=== PATIENT | female | born 1975 | race African-American/Black ===

== ENCOUNTER 2017-06-18 19:30 | Emergency (ER) | payer MEDICAID ==
[~2017-06-18] VITALS: Ht 172.7 cm; Wt 153.2 kg
[~2017-06-18 19:30] MED LIST: NO HOME MEDS
[2017-06-18 19:42] VITALS: TEMP 97.6
[2017-06-18] MEDS ORDERED: ELIMITE TOP (20:19)
[2017-06-18 20:50] VITALS: BP 155/76; PULSE 72
== END 2017-06-18 20:50 | disposition home or self-care (01) ==
LOC: COL.ER 19:30
DX: R21 Rash and other nonspecific skin eruption (principal)

== ENCOUNTER → 2017-06-25 | Outpatient (CLI) | payer MEDICAID ==
[~2017-06-25] MED LIST changes: +ELIMITE TOP
== END ==
LOC: COL.RAD 11:21
DX: M75.32 Calcific tendinitis of left shoulder (principal); M24.012 Loose body in left shoulder

== ENCOUNTER → 2017-07-12 | Outpatient (CLI) | payer MEDICAID ==
[~2017-07-12] VITALS: Ht 172.7 cm; Wt 154.2 kg
[~2017-07-12] MED LIST changes: +D3-5050000 IU PO; +MULTIPLE VITAMI1 TA1 PO; +VITAMIN B122500 MCG PO
[2017-07-12 14:53] VITALS: BP 164/84; PULSE 68
== END ==
LOC: LIGHT 09:31
DX: E66.01 Morbid (severe) obesity due to excess calories (principal); Z68.43 Body mass index [BMI] 50.0-59.9, adult; Z71.3 Dietary counseling and surveillance
CPT/HCPCS: G0463

== ENCOUNTER → 2017-07-21 | Outpatient (CLI) | payer MEDICAID | LOC: COL.RAD 10:30 | DX: M75.82 Other shoulder lesions, left shoulder (principal); M75.52 Bursitis of left shoulder; M19.012 Primary osteoarthritis, left shoulder ==

== ENCOUNTER → 2017-08-12 | Outpatient (CLI) | payer MEDICAID | LOC: COL.RAD 09:55 | DX: K95.09 Other complications of gastric band procedure (principal) ==

== ENCOUNTER → 2017-08-23 | Outpatient (CLI) | payer MEDICAID ==
[~2017-08-23] VITALS: Ht 172.7 cm; Wt 154.7 kg
[2017-08-23 13:43] VITALS: BP 160/70; PULSE 80
== END ==
LOC: LIGHT 13:29
DX: E66.01 Morbid (severe) obesity due to excess calories (principal); Z68.43 Body mass index [BMI] 50.0-59.9, adult; Z71.3 Dietary counseling and surveillance
CPT/HCPCS: G0463

== ENCOUNTER 2017-09-16 11:53 | Inpatient (IN) | payer MEDICAID ==
[~2017-09-16] VITALS: Ht 170.2 cm; Wt 151.5 kg
[2017-10-20] VITALS (11 sets, daily range): BP systolic 146–165; BP diastolic 61–81; PULSE 57–692; TEMP 97–97.8
[2017-10-20] MEDS ORDERED: FLEXERIL5 MG PO (08:32)
[2017-10-20] MEDS ORDERED: ZOVIRAX 200MG200 MG PO (08:33)
[2017-10-21 01:22] VITALS: BP 158/87; PULSE 62; TEMP 98.4
[2017-10-21 05:31] VITALS: BP 149/78; PULSE 65; TEMP 98.5
[2017-10-21 09:52] VITALS: BP 147/71; PULSE 57; TEMP 98.8
[2017-10-21 13:09] VITALS: BP 160/84; PULSE 58; TEMP 98.6
== END 2017-10-21 14:22 | disposition home or self-care (01) | DRG 327 ==
LOC: INPTSU 10-20 07:19 → SURG 10-20 09:00
PROVIDERS: Surgery
PROC: 0DP64YZ Removal of Other Device from Stomach, Percutaneous Endoscopic Approach (ICD-10-PCS; 2017-10-20)
PROC: 0DB64Z3 Excision of Stomach, Percutaneous Endoscopic Approach, Vertical (ICD-10-PCS; principal; 2017-10-20 09:00)
DX: K95.09 Other complications of gastric band procedure (principal); Z68.43 Body mass index [BMI] 50.0-59.9, adult; E66.01 Morbid (severe) obesity due to excess calories; Z98.84 Bariatric surgery status
CPT/HCPCS: A9284; C9113; J0171; J0330; J1885; J2405; J2550; J2704; J3010; J7120

== ENCOUNTER → 2017-09-28 | Outpatient (CLI) | payer MEDICAID | LOC: LIGHT 10:25 | DX: E66.01 Morbid (severe) obesity due to excess calories (principal); K95.09 Other complications of gastric band procedure; Z98.84 Bariatric surgery status; Z68.43 Body mass index [BMI] 50.0-59.9, adult; Z71.3 Dietary counseling and surveillance ==

== ENCOUNTER 2017-10-04 09:05 | Outpatient (RCR) | payer MEDICAID ==
[2017-10-20] MEDS ORDERED: FLEXERIL5 MG PO (08:32)
[2017-10-20] MEDS ORDERED: ZOVIRAX 200MG200 MG PO (08:33)
[2017-10-31] MEDS ORDERED: NORCO 325 MG-7.1 TAB PO (18:42)
[2017-10-31] MEDS ORDERED: CALCIUM CARBON500 M1 PO (18:43)
[2017-10-31] MEDS ORDERED: FLINTSTONES W/I1 CTB PO (18:43)
[2017-11-04] MEDS ORDERED: LOVENOX150 MG/ML SQ (10:15)
[2017-11-04] MEDS ORDERED: COUMADIN 5MG5 MG/TAB PO (10:15)
[2017-11-04] MEDS ORDERED: JANTOVEN2 MG PO (10:18)
[2017-11-04] MEDS ORDERED: NORCO 325 MG-51 TAB PO (10:25)
[2017-11-04] MEDS ORDERED: KLONOPIN 0.5MG0.5 MG PO (10:25)
[2017-11-04] MEDS ORDERED: MELAT3MGTAB PO (11:24)
[2017-11-04] MEDS ORDERED: COLACE 100100 MG/CAP PO (11:25)
[2017-11-04] MEDS ORDERED: MIRALAX PA17 GM/Dose PO (11:25)
[2017-11-10] MEDS ORDERED: LOVENOX150 MG/ML SQ (15:30)
[2017-11-10] MEDS ORDERED: CEPHALEXIN500 M1 PO (19:27)
[2017-11-15] MEDS ORDERED: B-121000 MCG (13:38)
[2017-11-15] MEDS ORDERED: D3-5050000 IU PO (13:38)
[2017-12-17] MEDS ORDERED: FLEXERIL5 MG PO (14:08)
[2017-12-17] MEDS ORDERED: ROBAXIN 75750 MG/TAB PO (14:40)
[2017-12-17] MEDS ORDERED: NORCO 325 MG-51 TAB PO (14:41)
== END 2018-01-02 | disposition home or self-care (01) ==
LOC: WSPT
DX: M75.42 Impingement syndrome of left shoulder (principal)

== ENCOUNTER → 2017-10-04 | Outpatient (CLI) | payer MEDICAID ==
[~2017-10-04] VITALS: Ht 172.7 cm; Wt 156.0 kg
[2017-10-04 15:20] VITALS: BP 150/82; PULSE 60
== END ==
LOC: LIGHT 09:15
DX: Z01.818 Encounter for other preprocedural examination (principal)

== ENCOUNTER → 2017-10-26 | Outpatient (CLI) | payer MEDICAID ==
[~2017-10-26] MED LIST changes: +FLEXERIL5 MG PO; +ZOVIRAX 200MG200 MG PO
== END ==
LOC: COL.VAS 10:08
DX: M79.661 Pain in right lower leg (principal)

== ENCOUNTER 2017-10-31 18:02 | Inpatient (IN) | payer MEDICAID ==
[~2017-10-31] VITALS: Ht 170.2 cm; Wt 149.4 kg
[2017-10-31] MEDS ORDERED: NORCO 325 MG-7.1 TAB PO (18:42)
[2017-10-31] MEDS ORDERED: CALCIUM CARBON500 M1 PO (18:43)
[2017-10-31] MEDS ORDERED: FLINTSTONES W/I1 CTB PO (18:43)
[2017-10-31 18:44] LABS: BASO % 0.3 % (0.0-2.0); EOS # 0.1 (0.0-0.7); EOS % 1.2 % (0-4.0); GRAN % 73.3 % (42.2-75.2); LYMPH # 1.8 (1.2-3.4); LYMPH % 16.2 % (20.0-51.0); MEAN CELL VOLUME 69 fl (80.0-100.0); MEAN CORPUSCULAR HGB CONC 31 g/dl (33.0-37.0); MEAN PLATELET VOLUME 9.9 fl (7.4-10.4); MONO % 8.7 % (1.7-9.3); PLATELET COUNT 224 K/mm3 (130-400); RED BLOOD COUNT 4.83 M/mm3 (4.10-5.30); REDCELL DISTRIBUTION WIDTH-CV 17.2 % (11.5-14.5)
[2017-10-31 18:45] LABS: HEMATOCRIT 33.1 % (37.0-47.0); HEMOGLOBIN 10.1 g/dl (12.5-16.0); MEAN CORPUSCULAR HEMOGLOBIN 21 pg (27.0-31.0)
[2017-10-31 18:53] LABS: BILIRUBIN,TOTAL 0.3 mg/dL (0.0-1.0); CALCIUM 9.3 mg/dL (8.4-10.2); CREATININE, serum 0.56 mg/dL (0.52-1.25); POTASSIUM 3.8 mmol/L (3.4-5.0); TOTAL PROTEIN 8.8 gm/dL (6.4-8.2)
[2017-10-31 21:21] VITALS: BP 135/81; PULSE 82; TEMP 99.2
[2017-11-01 00:45] VITALS: BP 123/55; PULSE 67; TEMP 98.6
[2017-11-01 03:42] VITALS: BP 126/67; PULSE 68; TEMP 98.7
[2017-11-01 06:32] LABS: BASO % 0.3 % (0.0-2.0); EOS # 0.2 (0.0-0.7); EOS % 2.6 % (0-4.0); GRAN # 5.9 (1.4-6.5); GRAN % 76.7 % (42.2-75.2); LYMPH # 0.8 (1.2-3.4); MEAN CELL VOLUME 70 fl (80.0-100.0); MEAN CORPUSCULAR HGB CONC 31 g/dl (33.0-37.0); MEAN PLATELET VOLUME 9.9 fl (7.4-10.4); MONO # 0.8 (0.1-0.6); MONO % 10.1 % (1.7-9.3); PLATELET COUNT 202 K/mm3 (130-400); RED BLOOD COUNT 4.16 M/mm3 (4.10-5.30); REDCELL DISTRIBUTION WIDTH-CV 17.2 % (11.5-14.5)
[2017-11-01 06:33] LABS: MEAN CORPUSCULAR HEMOGLOBIN 22 pg (27.0-31.0)
[2017-11-01 06:38] LABS: CALCIUM 8.7 mg/dL (8.4-10.2); CREATININE, serum 0.54 mg/dL (0.52-1.25)
[2017-11-01 09:05] VITALS: BP 124/70; PULSE 65; TEMP 98.3
[2017-11-01 12:26] VITALS: BP 111/57; PULSE 83; TEMP 97.8
[2017-11-01 17:04] VITALS: BP 112/57; BP 126/67; PULSE 69; PULSE 82; TEMP 98; TEMP 98.4
[2017-11-01 19:27] VITALS: BP 133/81; PULSE 77; TEMP 99.8
[2017-11-02] VITALS (7 sets, daily range): BP systolic 119–145; BP diastolic 61–81; PULSE 74–94; TEMP 98.3–99
[2017-11-02 06:18] LABS: BASO % 0.2 % (0.0-2.0); EOS # 0.3 (0.0-0.7); EOS % 3.3 % (0-4.0); GRAN # 6.7 (1.4-6.5); GRAN % 70.6 % (42.2-75.2); LYMPH # 1.3 (1.2-3.4); MEAN CELL VOLUME 70 fl (80.0-100.0); MEAN CORPUSCULAR HGB CONC 31 g/dl (33.0-37.0); MEAN PLATELET VOLUME 10.7 fl (7.4-10.4); MONO # 1.1 (0.1-0.6); MONO % 11.6 % (1.7-9.3); PLATELET COUNT 220 K/mm3 (130-400); RED BLOOD COUNT 4.01 M/mm3 (4.10-5.30); REDCELL DISTRIBUTION WIDTH-CV 17.3 % (11.5-14.5)
[2017-11-02 06:24] LABS: HEMATOCRIT 27.9 % (37.0-47.0); HEMOGLOBIN 8.5 g/dl (12.5-16.0); MEAN CORPUSCULAR HEMOGLOBIN 21 pg (27.0-31.0)
[2017-11-02 06:30] LABS: CALCIUM 8.7 mg/dL (8.4-10.2); CREATININE, serum 0.51 mg/dL (0.52-1.25); POTASSIUM 4.1 mmol/L (3.4-5.0)
[2017-11-02 06:46] LABS: INR 1.5 (0.8-3.0); PROTHROMBIN TIME 17.1 SECONDS (9.7-12.8)
[2017-11-03 05:08] VITALS: BP 130/79; PULSE 94; TEMP 98.5
[2017-11-03 06:18] LABS: FACTOR II ACTIVITY 99 % (72-140); FACTOR V 74 % (50-150)
[2017-11-03 06:48] LABS: BASO % 0.2 % (0.0-2.0); EOS # 0.2 (0.0-0.7); EOS % 2.1 % (0-4.0); GRAN # 7.5 (1.4-6.5); GRAN % 73.6 % (42.2-75.2); LYMPH # 1.3 (1.2-3.4); LYMPH % 12.8 % (20.0-51.0); MEAN CELL VOLUME 70 fl (80.0-100.0); MEAN CORPUSCULAR HGB CONC 31 g/dl (33.0-37.0); MEAN PLATELET VOLUME 10.5 fl (7.4-10.4); MONO # 1.1 (0.1-0.6); MONO % 10.9 % (1.7-9.3); PLATELET COUNT 250 K/mm3 (130-400); RED BLOOD COUNT 3.94 M/mm3 (4.10-5.30); REDCELL DISTRIBUTION WIDTH-CV 17.1 % (11.5-14.5)
[2017-11-03 06:50] LABS: HEMOGLOBIN 8.4 g/dl (12.5-16.0); MEAN CORPUSCULAR HEMOGLOBIN 21 pg (27.0-31.0)
[2017-11-03 06:51] LABS: HEMATOCRIT 27.4 % (37.0-47.0)
[2017-11-03 07:07] LABS: CREATININE, serum 0.58 mg/dL (0.52-1.25); INR 1.7 (0.8-3.0); PROTHROMBIN TIME 19.7 SECONDS (9.7-12.8)
[2017-11-03 08:37] VITALS: BP 138/86; PULSE 85; TEMP 98.7
[2017-11-03 11:51] VITALS: BP 124/71; PULSE 80; TEMP 98.1
[2017-11-03 12:38] LABS: LUPUS ANTICOAGULANT INR 1.4 (()); LUPUS ANTICOAGULANT PT 15.6 sec (())
[2017-11-03 15:55] VITALS: BP 102/73; PULSE 73; TEMP 98.3
[2017-11-03 20:16] VITALS: BP 130/61; PULSE 63; TEMP 97.6
[2017-11-03 23:39] VITALS: BP 126/66; PULSE 60; TEMP 97.9
[2017-11-04 03:13] VITALS: BP 131/55; PULSE 88; TEMP 98.1
[2017-11-04 06:41] LABS: BASO % 0.4 % (0.0-2.0); EOS # 0.4 (0.0-0.7); EOS % 5.7 % (0-4.0); GRAN # 4.3 (1.4-6.5); GRAN % 62.9 % (42.2-75.2); LYMPH # 1.4 (1.2-3.4); LYMPH % 20.2 % (20.0-51.0); MEAN CELL VOLUME 68 fl (80.0-100.0); MEAN CORPUSCULAR HGB CONC 31 g/dl (33.0-37.0); MEAN PLATELET VOLUME 9.7 fl (7.4-10.4); MONO # 0.7 (0.1-0.6); MONO % 10.5 % (1.7-9.3); PLATELET COUNT 275 K/mm3 (130-400); RED BLOOD COUNT 3.91 M/mm3 (4.10-5.30); REDCELL DISTRIBUTION WIDTH-CV 17.3 % (11.5-14.5)
[2017-11-04 06:48] LABS: CREATININE, serum 0.57 mg/dL (0.52-1.25)
[2017-11-04 06:49] LABS: HEMATOCRIT 26.6 % (37.0-47.0); HEMOGLOBIN 8.3 g/dl (12.5-16.0); MEAN CORPUSCULAR HEMOGLOBIN 21 pg (27.0-31.0)
[2017-11-04 06:50] LABS: INR 1.7 (0.8-3.0); PROTHROMBIN TIME 20.2 SECONDS (9.7-12.8)
[2017-11-04 07:33] VITALS: BP 115/52; PULSE 66; TEMP 99
[2017-11-04] MEDS ORDERED: COUMADIN 5MG5 MG/TAB PO (10:15)
[2017-11-04] MEDS ORDERED: LOVENOX150 MG/ML SQ (10:15)
[2017-11-04] MEDS ORDERED: JANTOVEN2 MG PO (10:18)
[2017-11-04] MEDS ORDERED: KLONOPIN 0.5MG0.5 MG PO (10:25)
[2017-11-04] MEDS ORDERED: NORCO 325 MG-51 TAB PO (10:25)
[2017-11-04] MEDS ORDERED: MELAT3MGTAB PO (11:24)
[2017-11-04] MEDS ORDERED: MIRALAX PA17 GM/Dose PO (11:25)
[2017-11-04] MEDS ORDERED: COLACE 100100 MG/CAP PO (11:25)
[2017-11-05 08:48] LABS: PROTEIN C ACTIVITY 78 % (70-150)
[2017-11-05 08:49] LABS: ANTI-THROMBIN III 93 % (72-128)
== END 2017-11-04 14:10 | disposition home or self-care (01) | DRG 176 ==
LOC: COL.ER 18:02 → MEDICAL 20:19
PROVIDERS: Emergency Medicine; Nurse Practitioner; Physician Assistant
DX: I26.99 Other pulmonary embolism without acute cor pulmonale (principal); I82.4Z1 Acute embolism and thrombosis of unspecified deep veins of right distal lower extremity; Z68.43 Body mass index [BMI] 50.0-59.9, adult; E66.9 Obesity, unspecified; Z98.84 Bariatric surgery status; Z87.891 Personal history of nicotine dependence; F41.8 Other specified anxiety disorders
CPT/HCPCS: 99222-AI; 99231-AI; 99232-AI; 99239; A9284; J1170; J1650; J1885; J2405; J7030; Q9967

== ENCOUNTER → 2017-11-08 | Outpatient (CLI) | payer MEDICAID ==
[~2017-11-08] MED LIST changes: +CALCIUM CARBON500 M1 PO; +COLACE 100100 MG/CAP PO; +COUMADIN 5MG5 MG/TAB PO; +FLINTSTONES W/I1 CTB PO; +JANTOVEN2 MG PO; +KLONOPIN 0.5MG0.5 MG PO; +LOVENOX150 MG/ML SQ; +MELAT3MGTAB PO; +MIRALAX PA17 GM/Dose PO; +NORCO 325 MG-51 TAB PO; +NORCO 325 MG-7.1 TAB PO
[2017-11-08 09:33] LABS: HEMOGLOBIN 9.4 g/dl (12.5-16.0); MEAN CELL VOLUME 69 fl (80.0-100.0); MEAN CORPUSCULAR HEMOGLOBIN 21 pg (27.0-31.0); MEAN CORPUSCULAR HGB CONC 30 g/dl (33.0-37.0); MEAN PLATELET VOLUME 9.3 fl (7.4-10.4); PLATELET COUNT 384 K/mm3 (130-400); REDCELL DISTRIBUTION WIDTH-CV 17.2 % (11.5-14.5)
[2017-11-08 09:35] LABS: INR 1.9 (0.8-3.0); PROTHROMBIN TIME 22.3 SECONDS (9.7-12.8)
[2017-11-08 09:39] LABS: CALCIUM 9.4 mg/dL (8.4-10.2); CREATININE, serum 0.62 mg/dL (0.52-1.25); POTASSIUM 3.7 mmol/L (3.4-5.0)
== END ==
LOC: COL.LAB 08:59
PROVIDERS: Internal Medicine
DX: Z01.89 Encounter for other specified special examinations (principal)

== ENCOUNTER → 2017-11-09 | Outpatient (CLI) | payer MEDICAID ==
[~2017-11-09] MED LIST changes: +B-121000 MCG; +CEPHALEXIN500 M1 PO
[2017-11-09 10:23] LABS: MEAN CELL VOLUME 69 fl (80.0-100.0); MEAN CORPUSCULAR HGB CONC 31 g/dl (33.0-37.0); MEAN PLATELET VOLUME 9.8 fl (7.4-10.4); PLATELET COUNT 421 K/mm3 (130-400); RED BLOOD COUNT 4.55 M/mm3 (4.10-5.30); REDCELL DISTRIBUTION WIDTH-CV 17.3 % (11.5-14.5)
[2017-11-09 10:24] LABS: HEMATOCRIT 31.5 % (37.0-47.0); HEMOGLOBIN 9.6 g/dl (12.5-16.0); MEAN CORPUSCULAR HEMOGLOBIN 21 pg (27.0-31.0)
[2017-11-09 10:37] LABS: CALCIUM 9.4 mg/dL (8.4-10.2); CREATININE, serum 0.64 mg/dL (0.52-1.25); POTASSIUM 3.7 mmol/L (3.4-5.0)
[2017-11-09 11:50] LABS: INR 1.8 (0.8-3.0)
== END ==
LOC: COL.LAB 09:31
PROVIDERS: Internal Medicine; Registered Nurse
DX: Z01.89 Encounter for other specified special examinations (principal)

== ENCOUNTER 2017-11-10 16:56 | Emergency (ER) | payer MEDICAID ==
[~2017-11-10] VITALS: Ht 170.2 cm; Wt 141.4 kg
[~2017-11-10 16:56] MED LIST changes: -B-121000 MCG; -CEPHALEXIN500 M1 PO
[2017-11-10 17:00] VITALS: BP 135/84; TEMP 98.9
[2017-11-10 19:16] LABS: INR 1.9 (0.8-3.0); PROTHROMBIN TIME 21.2 SECONDS (9.7-12.8)
[2017-11-10] MEDS ORDERED: CEPHALEXIN500 M1 PO (19:27)
[2017-11-10 19:35] VITALS: PULSE 72
== END 2017-11-10 19:36 | disposition home or self-care (01) ==
LOC: COL.ER 16:56
PROVIDERS: Nurse Practitioner
DX: L03.311 Cellulitis of abdominal wall (principal); F41.9 Anxiety disorder, unspecified; Z87.891 Personal history of nicotine dependence; Z88.2 Allergy status to sulfonamides; Z79.01 Long term (current) use of anticoagulants

== ENCOUNTER → 2017-11-12 | Outpatient (CLI) | payer MEDICAID ==
[~2017-11-12] MED LIST changes: +B-121000 MCG; +CEPHALEXIN500 M1 PO
[2017-11-12 10:37] LABS: PROTHROMBIN TIME 22.8 SECONDS (9.7-12.8)
== END ==
LOC: COL.LAB 09:30
PROVIDERS: Physician Assistant
DX: Z51.81 Encounter for therapeutic drug level monitoring (principal); Z79.01 Long term (current) use of anticoagulants; I26.99 Other pulmonary embolism without acute cor pulmonale

== ENCOUNTER → 2017-11-15 | Outpatient (CLI) | payer MEDICAID ==
[~2017-11-15] VITALS: Ht 170.2 cm; Wt 141.7 kg
== END ==
LOC: LIGHT 11-01 14:13
DX: E66.01 Morbid (severe) obesity due to excess calories (principal); Z68.42 Body mass index [BMI] 45.0-49.9, adult; Z71.3 Dietary counseling and surveillance; Z98.84 Bariatric surgery status

== ENCOUNTER → 2017-11-16 | Outpatient (CLI) | payer MEDICAID ==
[2017-11-16 15:12] LABS: BASO % 0.3 % (0.0-2.0); EOS # 0.2 (0.0-0.7); GRAN # 3.2 (1.4-6.5); LYMPH % 33.7 % (20.0-51.0); MEAN CELL VOLUME 68 fl (80.0-100.0); MEAN CORPUSCULAR HGB CONC 30 g/dl (33.0-37.0); MEAN PLATELET VOLUME 9.3 fl (7.4-10.4); MONO # 0.6 (0.1-0.6); MONO % 9.7 % (1.7-9.3); PLATELET COUNT 352 K/mm3 (130-400); RED BLOOD COUNT 4.57 M/mm3 (4.10-5.30); REDCELL DISTRIBUTION WIDTH-CV 17.3 % (11.5-14.5)
[2017-11-16 15:16] LABS: HEMATOCRIT 30.9 % (37.0-47.0); HEMOGLOBIN 9.4 g/dl (12.5-16.0); MEAN CORPUSCULAR HEMOGLOBIN 21 pg (27.0-31.0)
[2017-11-16 15:18] LABS: PROTHROMBIN TIME 22.2 SECONDS (9.7-12.8)
== END ==
LOC: COL.LAB 14:52
PROVIDERS: Registered Nurse
DX: K22.0 Achalasia of cardia (principal); I26.99 Other pulmonary embolism without acute cor pulmonale; Z79.01 Long term (current) use of anticoagulants

== ENCOUNTER 2017-11-29 09:13 | Emergency (ER) | payer MEDICAID ==
[~2017-11-29] VITALS: Ht 165.1 cm; Wt 140.5 kg
[2017-11-29 09:20] VITALS: BP 144/69
[2017-11-29 09:50] LABS: BASO % 0.9 % (0.0-2.0); EOS # 0.2 (0.0-0.7); EOS % 4.6 % (0-4.0); GRAN # 1.3 (1.4-6.5); GRAN % 37.1 % (42.2-75.2); LYMPH # 1.5 (1.2-3.4); LYMPH % 42.4 % (20.0-51.0); MEAN CELL VOLUME 68 fl (80.0-100.0); MEAN CORPUSCULAR HGB CONC 31 g/dl (33.0-37.0); MEAN PLATELET VOLUME 9.2 fl (7.4-10.4); MONO # 0.5 (0.1-0.6); MONO % 14.7 % (1.7-9.3); PLATELET COUNT 263 K/mm3 (130-400); RED BLOOD COUNT 4.35 M/mm3 (4.10-5.30); REDCELL DISTRIBUTION WIDTH-CV 18.6 % (11.5-14.5)
[2017-11-29 10:02] LABS: ALBUMIN 3.6 gm/dL (3.5-5.0); BILIRUBIN,TOTAL 0.4 mg/dL (0.0-1.0); CALCIUM 9.2 mg/dL (8.4-10.2); CREATININE, serum 0.59 mg/dL (0.52-1.25); POTASSIUM 3.9 mmol/L (3.4-5.0)
[2017-11-29 10:15] LABS: HEMATOCRIT 29.5 % (37.0-47.0); HEMOGLOBIN 9.1 g/dl (12.5-16.0); MEAN CORPUSCULAR HEMOGLOBIN 21 pg (27.0-31.0)
[2017-11-29 10:17] LABS: INR 1.2 (0.8-3.0); PROTHROMBIN TIME 14.1 SECONDS (9.7-12.8)
[2017-11-29 10:20] VITALS: TEMP 97.8
[2017-11-29 10:49] VITALS: PULSE 65
== END 2017-11-29 10:50 | disposition home or self-care (01) ==
LOC: COL.ER 09:13
PROVIDERS: Family Medicine
DX: R07.9 Chest pain, unspecified (principal); R79.1 Abnormal coagulation profile; Z86.711 Personal history of pulmonary embolism; Z79.01 Long term (current) use of anticoagulants

== ENCOUNTER 2017-12-17 13:51 | Emergency (ER) | payer MEDICAID ==
[~2017-12-17] VITALS: Ht 170.2 cm; Wt 138.6 kg
[2017-12-17 13:55] VITALS: TEMP 97.5
[2017-12-17] MEDS ORDERED: FLEXERIL5 MG PO (14:08)
[2017-12-17] MEDS ORDERED: ROBAXIN 75750 MG/TAB PO (14:40)
[2017-12-17] MEDS ORDERED: NORCO 325 MG-51 TAB PO (14:41)
[2017-12-17 15:00] VITALS: BP 151/74; PULSE 61
== END 2017-12-17 15:00 | disposition home or self-care (01) ==
LOC: COL.ER 13:51
DX: S16.1XXA Strain of muscle, fascia and tendon at neck level, initial encounter (principal); F17.210 Nicotine dependence, cigarettes, uncomplicated; Z79.01 Long term (current) use of anticoagulants; X50.0XXA Overexertion from strenuous movement or load, initial encounter; Y93.41 Activity, dancing

== ENCOUNTER → 2018-01-10 | Outpatient (CLI) | payer MEDICAID ==
[~2018-01-10] VITALS: Ht 170.2 cm; Wt 134.5 kg
[~2018-01-10] MED LIST changes: +ROBAXIN 75750 MG/TAB PO
[2018-01-10 13:51] VITALS: BP 118/72; PULSE 80
== END ==
LOC: LIGHT 12-13 17:13
DX: E66.01 Morbid (severe) obesity due to excess calories (principal); Z68.42 Body mass index [BMI] 45.0-49.9, adult; Z71.3 Dietary counseling and surveillance; Z98.84 Bariatric surgery status

== ENCOUNTER 2018-02-22 13:30 | Outpatient (RCR) | payer MEDICAID ==
[2018-03-06] MEDS ORDERED: NORCO 325 MG-51 TAB PO (10:40)
[2018-03-06] MEDS ORDERED: NATURAL IRON65 MG PO (10:40)
== END 2018-04-25 | disposition home or self-care (01) ==
LOC: WSPT
DX: M75.42 Impingement syndrome of left shoulder (principal)
CPT/HCPCS: G0283-GP; G8978-GP; G8979-GP

== ENCOUNTER 2018-03-06 08:32 | Emergency (ER) | payer MEDICAID ==
[~2018-03-06] VITALS: Ht 172.7 cm; Wt 128.6 kg
[2018-03-06 08:44] VITALS: TEMP 97.6
[2018-03-06 09:18] LABS: BASO % 0.3 % (0.0-2.0); EOS # 0.1 (0.0-0.7); EOS % 1.1 % (0-4.0); GRAN # 4.4 (1.4-6.5); GRAN % 61.1 % (42.2-75.2); LYMPH # 1.8 (1.2-3.4); LYMPH % 25.2 % (20.0-51.0); MEAN CELL VOLUME 62 fl (80.0-100.0); MEAN CORPUSCULAR HGB CONC 30 g/dl (33.0-37.0); MEAN PLATELET VOLUME 9.4 fl (7.4-10.4); MONO # 0.9 (0.1-0.6); PLATELET COUNT 322 K/mm3 (130-400); RED BLOOD COUNT 3.66 M/mm3 (4.10-5.30); REDCELL DISTRIBUTION WIDTH-CV 18.2 % (11.5-14.5)
[2018-03-06 09:27] LABS: INR 1.5 (0.8-3.0); PROTHROMBIN TIME 17.2 SECONDS (9.7-12.8)
[2018-03-06 09:29] LABS: HEMATOCRIT 22.8 % (37.0-47.0); HEMOGLOBIN 6.8 g/dl (12.5-16.0); MEAN CORPUSCULAR HEMOGLOBIN 19 pg (27.0-31.0)
[2018-03-06 09:43] LABS: ALANINE AMINOTRANSFERASE 24 U/L (9-52); ALBUMIN 3.5 gm/dL (3.5-5.0); ALKALINE PHOSPHATASE 21 U/L (50-136); ANION GAP 10 mmol/L (7-16); AST,SGOT 36 U/L (15-37); BILIRUBIN,TOTAL 0.4 mg/dL (0.0-1.0); BLOOD UREA NITROGEN 8 mg/dL (7-17); C-REACTIVE PROTEIN 2.9 mg/dL (0.0-0.9); CALCIUM 8.5 mg/dL (8.4-10.2); CARBON DIOXIDE 25 mmol/L (22-30); CHLORIDE 101 mmol/L (98-107); CREATININE, serum 0.48 mg/dL (0.52-1.25); GLUCOSE 92 mg/dL (74-106); LIPASE 29 U/L (23-300); POTASSIUM 3.5 mmol/L (3.4-5.0); SODIUM 137 mmol/L (137-145); TOTAL PROTEIN 6.9 gm/dL (6.4-8.2)
[2018-03-06 09:51] LABS: TROPONIN-I < 0.012 ng/mL (0.000-0.034)
[2018-03-06] MEDS ORDERED: NORCO 325 MG-51 TAB PO (10:40)
[2018-03-06] MEDS ORDERED: NATURAL IRON65 MG PO (10:40)
[2018-03-06 10:51] VITALS: BP 126/70; PULSE 82
== END 2018-03-06 10:52 | disposition home or self-care (01) ==
LOC: COL.ER 08:32
PROVIDERS: Emergency Medicine
DX: M25.512 Pain in left shoulder (principal); N92.0 Excessive and frequent menstruation with regular cycle; D64.9 Anemia, unspecified; Z79.01 Long term (current) use of anticoagulants; Z87.891 Personal history of nicotine dependence; Z86.718 Personal history of other venous thrombosis and embolism

== ENCOUNTER 2018-03-14 14:00 | Outpatient (RCR) | payer MEDICAID ==
[2018-03-08 12:33] VITALS: BP 162/82; PULSE 99; TEMP 98.4
[2018-03-08 12:39] LABS: IRON,SERUM < 10 ug/dL (35-150); TOTAL IRON BINDING CAPACITY 403 ug/dL (265-497)
[2018-03-08 13:06] LABS: FERRITIN 6 ng/mL (6-137)
[2018-03-08 23:47] LABS: FOLATE (FOLIC ACID) 9.2 ng/mL (7.0-31.4)
[2018-03-09 11:30] VITALS: BP 159/78; PULSE 92; TEMP 98
[2018-03-10 14:45] VITALS: BP 134/49; PULSE 79; TEMP 98
[~2018-03-14] VITALS: Ht 172.7 cm; Wt 162.7 kg
[~2018-03-14 14:00] MED LIST changes: +NATURAL IRON65 MG PO
== END 2018-03-16 09:28 | disposition home or self-care (01) ==
LOC: EUO 14:00
PROVIDERS: Family Medicine
DX: D50.9 Iron deficiency anemia, unspecified (principal)
CPT/HCPCS: J2916

== ENCOUNTER → 2018-04-06 | Outpatient (CLI) | payer MEDICAID | LOC: COL.LAB 14:45 | DX: N89.8 Other specified noninflammatory disorders of vagina (principal) ==

== ENCOUNTER 2018-05-08 21:29 | Emergency (ER) | payer MEDICAID ==
[~2018-05-08] VITALS: Ht 170.2 cm; Wt 118.2 kg
[2018-05-08 21:41] VITALS: TEMP 96.3
[2018-05-08 21:53] VITALS: BP 131/53
[2018-05-08] MEDS ORDERED: PERCOCET 325 MG1 TA2 PO (22:12)
[2018-05-08] MEDS ORDERED: MEDROL8 M1 PO (22:12)
[2018-05-08 22:33] VITALS: PULSE 62
== END 2018-05-08 22:33 | disposition home or self-care (01) ==
LOC: COL.ER 21:29
DX: M19.072 Primary osteoarthritis, left ankle and foot (principal)
CPT/HCPCS: J7512

== ENCOUNTER 2018-10-01 01:12 | Emergency (ER) | payer MEDICAID ==
[~2018-10-01] VITALS: Ht 170.2 cm; Wt 106.4 kg
[~2018-10-01 01:12] MED LIST changes: +MEDROL8 M1 PO; +PERCOCET 325 MG1 TA2 PO
[2018-10-01 01:15] VITALS: BP 163/76; PULSE 71; TEMP 97.5
== END 2018-10-01 02:06 | disposition home or self-care (01) ==
LOC: COL.ER 01:12
DX: S06.0X0A Concussion without loss of consciousness, initial encounter (principal); W26.8XXA Contact with other sharp object(s), not elsewhere classified, initial encounter; Y92.59 Other trade areas as the place of occurrence of the external cause

== ENCOUNTER 2018-11-24 20:25 | Emergency (ER) | payer MEDICAID ==
[~2018-11-24] VITALS: Ht 170.2 cm; Wt 104.5 kg
[2018-11-24 20:30] VITALS: BP 136/65; TEMP 97
[2018-11-24 21:51] VITALS: PULSE 65
== END 2018-11-24 21:50 | disposition home or self-care (01) ==
LOC: COL.ER 20:25
DX: M79.89 Other specified soft tissue disorders (principal); M79.662 Pain in left lower leg; M79.652 Pain in left thigh; R53.81 Other malaise
CPT/HCPCS: J1650

== ENCOUNTER → 2018-11-25 | Outpatient (CLI) | payer MEDICAID | LOC: COL.VAS 08:02 | DX: M79.605 Pain in left leg (principal); M79.89 Other specified soft tissue disorders; Z86.718 Personal history of other venous thrombosis and embolism ==

== ENCOUNTER 2019-01-21 08:00 | Outpatient (RCR) | payer MEDICAID ==
[2019-01-17 14:20] VITALS: BP 128/57; PULSE 76; TEMP 98.4
[2019-01-19 13:42] VITALS: BP 126/55; PULSE 66; TEMP 98.7
[2019-01-20 15:20] VITALS: BP 112/45; PULSE 71; TEMP 98
[~2019-01-21] VITALS: Ht 170.2 cm; Wt 101.7 kg
[~2019-01-21 08:00] MED LIST changes: +FERROUS SU325 MG/TAB PO; +MULTI VITAMINS1 TAB PO; +TURMERIC500 MG PO
[2019-01-21 08:33] VITALS: BP 118/52; PULSE 68; TEMP 98.1
== END 2019-01-21 09:09 | disposition home or self-care (01) ==
LOC: EUO 08:00
DX: D50.8 Other iron deficiency anemias (principal)
CPT/HCPCS: J2916

== ENCOUNTER 2019-02-07 07:09 | Day surgery (SDC) | payer MEDICAID ==
[~2019-02-07] VITALS: Ht 170.2 cm; Wt 101.1 kg
[2019-02-07 07:28] VITALS: BP 97/68; PULSE 64; TEMP 96.9
[2019-02-07] MEDS ORDERED: MULTIPLE VITAMI1 CAP PO (07:50)
[2019-02-07] MEDS ORDERED: PRILOSEC 20MG20 MG PO (09:00)
[2019-02-07 09:05] VITALS: BP 104/50; PULSE 52
--- NOTE | 2019-02-07 09:05 | NUR ---
Patient returns to GI bay 4 per cart after having colonoscopy and upper endoscopy completed. Transfers from cart to recliner with two person assist. IV fluids infusing and patient awake and alert. Call light in reach. States that she is hungry and wanting a snack and something to drink. Mother in room. Call light in reach. Denies pain or nausea. States that her throat is slightly sore.
--- NOTE | 2019-02-07 09:10 | NUR ---
Dr. Grissom here and talks with the patient and mother and all questions answered. Instructed ot begin Prilosec 20mg daily.
[2019-02-07 09:25] VITALS: BP 92/68; PULSE 59
--- NOTE | 2019-02-07 09:25 | NUR ---
Drank juice, ate chocolate pudding, and ate muffin without any nausea or difficulty swallowing.
[2019-02-07 09:40] VITALS: BP 104/58; PULSE 56
--- NOTE | 2019-02-07 09:40 | NUR ---
Room air sats 100% and IV discontinued. Patient is dressing self.
--- NOTE | 2019-02-07 10:00 | NUR ---
Given dismissal instructions and voices understanding of these. Patient taken per wheelchair to the front door and assisted into vehicle with dismissal instructions in hand.
== END 2019-02-07 10:00 | disposition home or self-care (01) ==
LOC: SDCO 07:09
DX: D50.9 Iron deficiency anemia, unspecified (principal); K29.30 Chronic superficial gastritis without bleeding; I10 Essential (primary) hypertension; Z86.711 Personal history of pulmonary embolism; Z86.14 Personal history of Methicillin resistant Staphylococcus aureus infection; Z90.49 Acquired absence of other specified parts of digestive tract; Z80.9 Family history of malignant neoplasm, unspecified; Z82.49 Family history of ischemic heart disease and other diseases of the circulatory system; Z88.2 Allergy status to sulfonamides; Z88.1 Allergy status to other antibiotic agents; M19.90 Unspecified osteoarthritis, unspecified site
CPT/HCPCS: OP; J2704; J7030

== ENCOUNTER → 2019-03-31 | Outpatient (CLI) | payer MEDICAID ==
[~2019-03-31] MED LIST changes: +MULTIPLE VITAMI1 CAP PO; +PRILOSEC 20MG20 MG PO
== END ==
LOC: COL.RAD 09:38
DX: N82.0 Vesicovaginal fistula (principal); N85.2 Hypertrophy of uterus
CPT/HCPCS: Q9967

== ENCOUNTER 2019-05-21 20:43 | Emergency (ER) | payer MEDICAID ==
[~2019-05-21] VITALS: Ht 172.7 cm; Wt 108.2 kg
[2019-05-21 20:47] VITALS: BP 132/65; TEMP 98.4
[2019-05-21] MEDS ORDERED: AMOXICILLIN 8751 TAB PO (21:23)
[2019-05-21 21:35] VITALS: PULSE 77
== END 2019-05-21 21:38 | disposition home or self-care (01) ==
LOC: COL.ER 20:43
DX: J01.90 Acute sinusitis, unspecified (principal); F17.210 Nicotine dependence, cigarettes, uncomplicated

== ENCOUNTER → 2020-01-26 | Outpatient (CLI) | payer MEDICAID ==
[~2020-01-26] MED LIST changes: +AMOXICILLIN 8751 TAB PO
== END ==
LOC: ZCOL.LAB 12:30
DX: M79.89 Other specified soft tissue disorders (principal)

== ENCOUNTER 2020-06-10 10:34 | Inpatient (IN) | payer MEDICAID ==
[~2020-06-10] VITALS: Ht 172.7 cm; Wt 128.6 kg
[2020-06-10] VITALS (7 sets, daily range): BP systolic 121–145; BP diastolic 65–87; PULSE 78–80; TEMP 98.2–98.8
[2020-06-10 11:54] LABS: BASO % 0.4 % (0.0-2.0); EOS # 0.1 (0.0-0.7); EOS % 1.1 % (0-4.0); GRAN # 4.4 (1.4-6.5); GRAN % 63.3 % (42.2-75.2); LYMPH # 1.8 (1.2-3.4); LYMPH % 25.6 % (20.0-51.0); MEAN CELL VOLUME 63 fl (80.0-100.0); MEAN CORPUSCULAR HGB CONC 27 g/dl (33.0-37.0); MEAN PLATELET VOLUME 9.8 fl (7.4-10.4); MONO # 0.7 (0.1-0.6); MONO % 9.3 % (1.7-9.3); PLATELET COUNT 152 K/mm3 (130-400); RED BLOOD COUNT 3.96 M/mm3 (4.10-5.30); REDCELL DISTRIBUTION WIDTH-CV 22.8 % (11.5-14.5)
[2020-06-10 12:08] LABS: HEMATOCRIT 25.1 % (37.0-47.0); MEAN CORPUSCULAR HEMOGLOBIN 17 pg (27.0-31.0)
[2020-06-10 12:11] LABS: HEMOGLOBIN 6.7 g/dl (12.5-16.0)
[2020-06-10 12:32] LABS: ALBUMIN 3.7 gm/dL (3.5-5.0); BILIRUBIN,TOTAL 0.5 mg/dL (0.0-1.0); CALCIUM 8.6 mg/dL (8.4-10.2); CREATININE, serum 0.55 (0.52-1.25); POTASSIUM 3.7 mmol/L (3.4-5.0); TOTAL PROTEIN 7.2 gm/dL (6.4-8.2)
[2020-06-10 12:52] LABS: TROPONIN-I 0.053 ng/mL (0.000-0.035)
[2020-06-10 15:21] LABS: INR 1.2 (0.8-3.0); PROTHROMBIN TIME 13.1 SECONDS (9.7-12.8)
--- NOTE | 2020-06-10 16:22 | NUR ---
Patient to room from ER via wheel chair. Transfers self from wheel chair to bed. Oriented to room. Patient has occasional pain in left upper chest, in her joints, and feet. Discussed plan orcare.
[2020-06-10 16:51] LABS: RETIC # 0.1 M/mm3 (0.02-0.16); RETIC % 2.6 % (0.5-3.52)
[2020-06-10 16:53] LABS: IRON,SERUM 18 ug/dL (35-150)
[2020-06-10 17:03] LABS: TOTAL IRON BINDING CAPACITY 457 ug/dL (265-497)
--- NOTE | 2020-06-10 17:10 | NUR ---
Review consent for blood transfusion with the patient. Questions answered. Patient signs consent. Will place in chart. Will attempt to start second IV at this time.
--- NOTE | 2020-06-10 17:51 | NUR ---
Unable to find IV site. Jun bathhouse attendant, in and attempts twice to get IV and unsuccessful. Page sent to anesthesia.
--- NOTE | 2020-06-10 17:55 | NUR ---
Receive call from Armani with anesthesia and he will come up to look for an IV site.
--- NOTE | 2020-06-10 18:04 | NUR ---
Patient tearful in room and says that she does not want to be stuck multiple times with needles and if that is what it comes to she will just say no to blood and anything else. Reassurance provided and explain what all the IV are needed for. Explain that anesthesia will come up in a little bit to see if they can start an IV. Patient says she does not want them starting the IV in her left AC. Explain that she has the right to tell anesthesia this when they come to look for an IV. Patient verbalizes understanding and denies further needs at this time.
--- NOTE | 2020-06-10 18:19 | NUR ---
Receive call from Armani with anesthesia and he will be up in about 20 minutes to try to get an IV started.
--- NOTE | 2020-06-10 21:00 | NUR ---
WAITING ON ANESTHESIA TO COME AND PLACE IV. PATIENT HAS COMPLAINTS OF BACK PAIN AND NOT BEING ABLE TO GET COMFORTABLE. PATIENT SEEMS VERY ANXIOUS.
--- NOTE | 2020-06-10 21:30 | NUR ---
STARTED PATIENT'S BLOOD TRANSFUSION PER PROTOCOL. PATIENT'S VITALS REMAINED STABLE AND SHE HAD NO COMPLAINTS.
--- NOTE | 2020-06-10 23:30 | NUR ---
PATIENT'S HEPARIN ANTI-XA WAS 1.15. HEPARIN STOPPED FOR TWO HOURS. WILL RECHECK THEN.
[2020-06-11] VITALS (8 sets, daily range): BP systolic 119–138; BP diastolic 53–95; PULSE 76–87; TEMP 97.6–98.9
[2020-06-11 02:38] LABS: PARTIAL THROMBOPLASTIN TIME 51.5 SECONDS (26.0-37.0)
--- NOTE | 2020-06-11 03:00 | NUR ---
PATIENTS HEPARIN ANTI-XA CAME BACK 0.39. HEPARIN RESTARTED AT 2,000 UNITS.
--- NOTE | 2020-06-11 03:31 | NUR ---
ENDED PATIENT'S BLOOD TRANSFUSION. PATIENT'S VITALS STABLE AND NO COMPLAINTS.
[2020-06-11 06:00] LABS: MEAN CELL VOLUME 65 fl (80.0-100.0); MEAN CORPUSCULAR HGB CONC 28 g/dl (33.0-37.0); MEAN PLATELET VOLUME 9.3 fl (7.4-10.4); PLATELET COUNT 137 K/mm3 (130-400); RED BLOOD COUNT 4.08 M/mm3 (4.10-5.30); REDCELL DISTRIBUTION WIDTH-CV 25.7 % (11.5-14.5)
[2020-06-11 06:02] LABS: HEMATOCRIT 26.3 % (37.0-47.0); HEMOGLOBIN 7.3 g/dl (12.5-16.0); MEAN CORPUSCULAR HEMOGLOBIN 18 pg (27.0-31.0)
[2020-06-11 06:11] LABS: CALCIUM 8.4 mg/dL (8.4-10.2); CREATININE, serum 0.6 (0.52-1.25); POTASSIUM 3.9 mmol/L (3.4-5.0)
[2020-06-11 06:21] LABS: TROPONIN-I 0.033 ng/mL (0.000-0.035)
[2020-06-11 07:14] LABS: BASO % 0.4 % (0.0-2.0); EOS % 1.6 % (0-4.0); GRAN % 63.1 % (42.2-75.2); LYMPH % 25.3 % (20.0-51.0); MONO % 9.3 % (1.7-9.3)
[2020-06-11 07:15] LABS: EOS # 0.1 (0.0-0.7); GRAN # 4.5 (1.4-6.5); LYMPH # 1.8 (1.2-3.4); MONO # 0.7 (0.1-0.6)
--- NOTE | 2020-06-11 07:44 | NUR ---
Sitting onedge of bedwatching TV and talking on cell phone. Alert and oriented x4. Denies pain at this time. Says that she feels better this morning, does not have the pressure in her chest that she had yesterday. Denies needs at this time. certified surgical technician in room with patient.
--- NOTE | 2020-06-11 09:04 | NUR ---
Lab in room attempting to obtain HepXa lab. Unable to find any accessible veins to access for lab sample. Patient expresses that she is frustrated with having to be "stuck with needles" so much. Spoke with NICO Ayala, and she will place orders for PICC. Attempt to contact [facility], not available at this time.
--- NOTE | 2020-06-11 09:10 | NUR ---
[facility], contacts this nurse back. Informed of PICC order. She will come up in little bit to insert PICC.
--- NOTE | 2020-06-11 11:07 | NUR ---
[facility], just completed putting PICC in right upper arm. Lab for Hep XA drawn from purple port of PICC. Positional on getting blood drawn from port. Lab in room to collect blood specimen. Patient receives call on cell phone, talking with her mother at this time.
--- NOTE | 2020-06-11 13:36 | NUR ---
Patient having pain in back of left leg and her joints. US called and says that they are going to come up to redo some of her US of her left lower leg. Patient informed of this and offered Tylenol and patient says that she is not going to take Tylenol. Patient says that she uses "CBD" at home because she has a high pain tolerance. Patient says that she just wants a warm blanket to her left lower extremity. Explain that US is coming up to reimage her left leg and when they are done we will reapply the warm blankets. Patient denies additional needs.
--- NOTE | 2020-06-11 15:03 | NUR ---
Detasseler met with patient to discuss discharge planning. Patient lives in [place] with her 20 year old son, Esteban. Patient does not have a phone number for Esteban. Patient sees Dr. No for primary care and obtains medications from [facility] with no difficulties. Patient does not use any DME and reports independence with ADLS. Patient has Advance Directives in EMR which designate her mother, Kosta (ph#[phone]) as DPOA-HC. Patient plans to return home upon discharge. SW will continue to follow for discharge needs.
--- NOTE | 2020-06-11 15:25 | NUR ---
Orders were placed by Dr. Stearns for IVC filter placement. COntacted MARTINE Ng, in label stitcher and they will contact this nurse back regarding date and time.
--- NOTE | 2020-06-11 15:36 | NUR ---
Patient continues to have pain in feet and ankles and in the left calf. Patient says that she is not going to take Tylenol. Asked EILEEN Blackburn, about cream or ointment that could be applied. Spoke with NICO Ayala, and she will review chart and see what could be prescribed. Patient updated. Provided patient education material in regards to IVC Filter placement, encouraged patient to review and write down questions so that she could discuss further with the provider when they come talk to her about it. Explain that the procedure would not be today and they were thinking possibly tomorrow and she would need to be NPO at midnight. Patient verbalizes understanding.
--- NOTE | 2020-06-11 15:54 | NUR ---
Receive call from the [facility] and they have patient on schedule to do the IVC filter placement for tomorrow, 06-12-20, at 0715 in the morning. Patient to be NPO at midnight. They would like consent placed on the chart and patient to void before they come. Explain that the patient would like to talk with the provider further regarding procedure but we would place a consent on the chart for the patient to sign after speaking with the provider. Will update patient.
--- NOTE | 2020-06-11 16:00 | NUR ---
Spoke with the patient regarding [place] that was ordered for her pain and the IVC filter placement date and time. Patient agrees to take [place] but would like to have some pudding to eat when she takes it. Bring the [place] in to the patient and then patient refuses to take the [place] because she does not want to get addicted to that and that it makes her itch. Ask patient what she would like to take and she says Tylenol arthritis. Explain that I would see if we could get that ordered and we would let her know. Patient verbalizes understanding. US at bedside doing US on left lower extremity.
--- NOTE | 2020-06-11 16:38 | NUR ---
NICO Ayala, updated in regards to patient not wanting to take [place]. Lucy will go in to talk with the patient. Dr. Arechiga also in room talking to patient about IVC Filter placement.
--- NOTE | 2020-06-11 17:11 | NUR ---
Review consent for IVC filter placement and patient reviews and signs. Will place in front of chart. Dr. Mohan in to talk to the patient and explains he will order Ultram for her if needed for pain. Patient denies additional needs or concerns at this time.
--- NOTE | 2020-06-11 19:54 | NUR ---
Resting in bed. Assessment complete. Lungs clear. Heart sounds normal. Bowels active x4. Puleses present throughout. No edema noted. PICC to right upper with heparin infusing without complications. Reports 8/10 leg pains. Provided with PRN tramadol. Heparin infusion rate decreased per protocol. Verified by MARTINE Steinberg. Denies other needs at this time. Call light in reach.
[2020-06-12] VITALS (17 sets, daily range): BP systolic 108–137; BP diastolic 59–87; PULSE 60–81; TEMP 97.5–98.2
--- NOTE | 2020-06-12 00:15 | NUR ---
Given PRN zofran for nausea. Denies other needs at this time. call light in reach.
--- NOTE | 2020-06-12 02:11 | NUR ---
Reporting dizziness and nervous about IVC filter placement in AM. Already given zofran. Spoke with Teresa RIOS. Will add order for ativan.
--- NOTE | 2020-06-12 04:17 | NUR ---
Resting in bed. Denies needs. Call light in reach.
--- NOTE | 2020-06-12 06:22 | NUR ---
Patient had dizziness and anxiety during night. Given x1 dose of ativan during night. Otherwise uneventful night. Resting in bed this Am. Call light in reach.
--- NOTE | 2020-06-12 07:05 | NUR ---
Report given to MARTINE Ho
--- NOTE | 2020-06-12 07:15 | NUR ---
PATIENT GOING DOWN FOR IVC FILTER. CONSENT ON CHART. PATIENT HAS BEEN NPO.
[2020-06-12 09:42] LABS: MEAN CELL VOLUME 65 fl (80.0-100.0); MEAN CORPUSCULAR HGB CONC 28 g/dl (33.0-37.0); MEAN PLATELET VOLUME 9.5 fl (7.4-10.4); PLATELET COUNT 139 K/mm3 (130-400); RED BLOOD COUNT 3.65 M/mm3 (4.10-5.30)
[2020-06-12 09:48] LABS: HEMATOCRIT 23.8 % (37.0-47.0); HEMOGLOBIN 6.7 g/dl (12.5-16.0); MEAN CORPUSCULAR HEMOGLOBIN 18 pg (27.0-31.0)
--- NOTE | 2020-06-12 10:10 | NUR ---
LAB RESULTS BACK. HEPXA OF 1.4, STOPPED HEP GTT PER PROTOCOL. SEE NEXT HEPXA ORDER
--- NOTE | 2020-06-12 11:00 | NUR ---
PATIENT'S 2 HOUR FLAT TIME IS UP AND PATIENT HAS TO VOID. ASSISTED TO BEDSIDE COMMODE.
--- NOTE | 2020-06-12 14:07 | NUR ---
STARTING BLOOD TRANSFUSION PER ORDERS. VSS. WILL MONITOR.
--- NOTE | 2020-06-12 19:38 | NUR ---
Resting in bed. Assessment complete. Left lower lobe diminished otherwise clear. Heart sounds normal. Bowels active x4. Pulses present throughout. Left lower extremity edema +1. PICC to right upper without complications. Heparin gtt infusing at 14.5 ml/hr. Recheck at 2114. Right femoral site CDI. Denies needs. Call light in reach. Denies pain.
[2020-06-12 21:42] LABS: HEMATOCRIT 25.9 % (37.0-47.0); HEMOGLOBIN 7.4 g/dl (12.5-16.0)
--- NOTE | 2020-06-12 21:48 | NUR ---
Teresa PANCHALN notified of patient H&H results. No new orders.
[2020-06-13] VITALS (11 sets, daily range): BP systolic 91–133; BP diastolic 51–84; PULSE 67–83; TEMP 97.7–98.7
--- NOTE | 2020-06-13 00:22 | NUR ---
Resting in bed. Denies needs. Call light in reach.
--- NOTE | 2020-06-13 02:05 | NUR ---
Resting in bed asleep. Call light in reach.
[2020-06-13 04:35] LABS: MEAN CELL VOLUME 67 fl (80.0-100.0); MEAN CORPUSCULAR HGB CONC 28 g/dl (33.0-37.0); MEAN PLATELET VOLUME 9.5 fl (7.4-10.4); PLATELET COUNT 140 K/mm3 (130-400); RED BLOOD COUNT 3.65 M/mm3 (4.10-5.30); REDCELL DISTRIBUTION WIDTH-CV 26.9 % (11.5-14.5)
[2020-06-13 04:45] LABS: CALCIUM 8.4 mg/dL (8.4-10.2); CREATININE, serum 0.58 (0.52-1.25); POTASSIUM 3.9 mmol/L (3.4-5.0)
[2020-06-13 04:49] LABS: HEMATOCRIT 24.6 % (37.0-47.0); MEAN CORPUSCULAR HEMOGLOBIN 19 pg (27.0-31.0)
[2020-06-13 04:51] LABS: HEMOGLOBIN 6.9 g/dl (12.5-16.0)
--- NOTE | 2020-06-13 04:53 | NUR ---
Patient hepXA within normal limits x2. Recheck next morning. Continuing at 14.5ml/hr per protocol.
--- NOTE | 2020-06-13 05:39 | NUR ---
Patient hemoglobin level decreased to 6.9. Blood transfusion started at this time.
--- NOTE | 2020-06-13 05:39 | NUR ---
Patient received blood transfusion this AM. Otherwise uneventful night. Resting in bed this AM. Call light in reach.
--- NOTE | 2020-06-13 06:57 | NUR ---
Report given to MARTINE Ho
--- NOTE | 2020-06-13 08:00 | NUR ---
PATIENT IS A&O. VSS WITH TELE INPLACE. INDEPENDENT IN ROOM. PATIENT ON HEPARIN GTT INFUSING INTO RIGHT UPPER ARM PICC. BLOOD TRANSFUSION FINISHING UP. SEE REPEAT LAB ORDERS. HEAD TO TOE ASSESSMENT COMPLETE. NO C/O N/V. TOLERATING GENERAL DIET. AM MEDS GIVEN. NO OTHER NEEDS. CALL LIGHT IN REACH.
--- NOTE | 2020-06-13 09:37 | NUR ---
Warfarin Initial Dosing Pharmacy Note Ordering Provider: MD REBECCA Indication: VTE/PE Treatment LABS: INR 1.2, HGB 6.9 Recommendation: WARFARIN 5 MG QHS, [facility] INR 2-3, WATCH INRs/BLEEDING CLOSELY
--- NOTE | 2020-06-13 12:07 | NUR ---
First visit from the manager shipping. Patient asked for prayer. Reexaminer prayed for patient. No other needs right now
--- NOTE | 2020-06-13 14:33 | NUR ---
[facility] attended clinical rounds with the team. PT ordered. SW reviewed PT note and patient was able to ambulate 150ft without any assistive devices. Recommendation is for home.
[2020-06-13 15:38] LABS: HEMOGLOBIN 7.6 g/dl (12.5-16.0)
[2020-06-14 02:55] VITALS: BP 127/74; PULSE 69; TEMP 98.7
[2020-06-14 07:18] LABS: MEAN CELL VOLUME 68 fl (80.0-100.0); MEAN CORPUSCULAR HGB CONC 29 g/dl (33.0-37.0); MEAN PLATELET VOLUME 10.2 fl (7.4-10.4); PLATELET COUNT 159 K/mm3 (130-400); RED BLOOD COUNT 3.81 M/mm3 (4.10-5.30); REDCELL DISTRIBUTION WIDTH-CV 28.6 % (11.5-14.5)
[2020-06-14 07:32] LABS: ALANINE AMINOTRANSFERASE 9 U/L (4-34); ALKALINE PHOSPHATASE < 20 U/L (50-136); ANION GAP 7 mmol/L (7-16); AST,SGOT 22 U/L (15-37); BILIRUBIN,TOTAL 0.2 mg/dL (0.0-1.0); BLOOD UREA NITROGEN 6 mg/dL (7-17); CALCIUM 8.3 mg/dL (8.4-10.2); CARBON DIOXIDE 24 mmol/L (22-30); CHLORIDE 108 mmol/L (98-107); CREATININE, serum 0.54 (0.52-1.25); GLUCOSE 91 mg/dL (74-106); POTASSIUM 3.8 mmol/L (3.4-5.0); SODIUM 139 mmol/L (137-145); TOTAL PROTEIN 6.2 gm/dL (6.4-8.2)
[2020-06-14 07:36] LABS: HEMOGLOBIN 7.5 g/dl (12.5-16.0); MEAN CORPUSCULAR HEMOGLOBIN 20 pg (27.0-31.0)
[2020-06-14 08:35] VITALS: BP 112/53; PULSE 67; TEMP 98.5
[2020-06-14 08:53] LABS: INR 1.2 (0.8-3.0); PROTHROMBIN TIME 13.9 SECONDS (9.7-12.8)
[2020-06-14 11:26] VITALS: BP 122/73; PULSE 83; TEMP 98.2
--- NOTE | 2020-06-14 12:30 | NUR ---
Patient sitting at edge of bed working on lunch, she has been vistiting on telephone. Crys refused zoloft after educational print out given. She also requested a education print out on ambien and it was provided. Hosptialsit to round again on her this afternoon. We reviewed her Hs coumadin dose & labs levals. Picc to Rue with Heparin drip per orders. Labs stable, no changes to be made
[2020-06-14 16:03] VITALS: BP 127/63; PULSE 82; TEMP 98.8
--- NOTE | 2020-06-14 18:56 | NUR ---
Patient sitting up at edge of bed. Eating dinner. She reports feeling nauseated. Zofran given. Denies the need for pain medication. Heparin at 14.5mlhr via Picc line, labs re ordered for the am. She is aware of coumadin dosage for tonight. She is wanting her meds by 9PM tonight & wanting to get a good nights rest.
[2020-06-14 20:12] VITALS: BP 121/66; PULSE 76; TEMP 97.9
--- NOTE | 2020-06-14 20:30 | NUR ---
PATIENT RESTING IN BED WATCHING TV. PATIENT COMPLAINS OF PAIN TO HER SHOULDER AND FEET. PATIENT REQUESTS 2 TRAMADOL. HEPARIN DRIP INFUSING AT 14.5 ML PER HOUR.
[2020-06-15 00:33] VITALS: BP 137/60; PULSE 72; TEMP 98.5
--- NOTE | 2020-06-15 01:22 | NUR ---
patient resting in bed watching tv. patient says she is not in any pain.
[2020-06-15 05:14] VITALS: BP 127/83; PULSE 64; TEMP 98.1
--- NOTE | 2020-06-15 05:41 | NUR ---
Patient reports not having pain this morning. Patient sitting at bedside drinking coffee.
[2020-06-15 07:05] LABS: BASO % 0.6 % (0.0-2.0); EOS # 0.2 (0.0-0.7); EOS % 2.7 % (0-4.0); GRAN # 4.3 (1.4-6.5); GRAN % 60.3 % (42.2-75.2); LYMPH # 1.9 (1.2-3.4); MEAN CELL VOLUME 69 fl (80.0-100.0); MEAN CORPUSCULAR HGB CONC 29 g/dl (33.0-37.0); MEAN PLATELET VOLUME 9.5 fl (7.4-10.4); MONO # 0.6 (0.1-0.6); MONO % 8.8 % (1.7-9.3); PLATELET COUNT 180 K/mm3 (130-400); RED BLOOD COUNT 4.15 M/mm3 (4.10-5.30); REDCELL DISTRIBUTION WIDTH-CV 29.2 % (11.5-14.5)
[2020-06-15 07:10] LABS: HEMATOCRIT 28.6 % (37.0-47.0); HEMOGLOBIN 8.2 g/dl (12.5-16.0); MEAN CORPUSCULAR HEMOGLOBIN 20 pg (27.0-31.0)
[2020-06-15 07:12] LABS: INR 1.2 (0.8-3.0); PROTHROMBIN TIME 12.9 SECONDS (9.7-12.8)
[2020-06-15 07:13] LABS: CALCIUM 8.9 mg/dL (8.4-10.2); CREATININE, serum 0.53 (0.52-1.25); POTASSIUM 3.9 mmol/L (3.4-5.0)
--- NOTE | 2020-06-15 07:26 | NUR ---
PT SLEEPING IN BED AT BEDSIDE SHIFT REPORT. PT REQUESTED NOT TO BE BOTHERED, DID NOT SLEEP WELL LAST NIGHT.
[2020-06-15 08:56] VITALS: BP 119/56; PULSE 65; TEMP 98.1
[2020-06-15] MEDS ORDERED: MEGACE ORAL40 MG/ML PO (10:20)
[2020-06-15] MEDS ORDERED: ELIQUIS 5MG PO ×3 (10:21→15:15)
[2020-06-15 11:55] VITALS: BP 115/69; PULSE 65; TEMP 98
[2020-06-15] MEDS ORDERED: SLOW FE142 MG PO (15:38)
[2020-06-15] MEDS ORDERED: ULTRAM 50MG TAB50 MG PO (15:38)
[2020-06-15] MEDS ORDERED: PROTONIX 40MG T40 MG PO (15:38)
--- NOTE | 2020-06-15 17:59 | NUR ---
PT REPORTED 6/10 PAIN THIS AM IN FEET AND RECEIEVED PRN TRAMADOL. PT REFUSED ZOLOFT. THIS NURSE WENT OVER DISCHARGE PAPERWORK WITH PT AND ANSWERED ANY QUESTIONS. PRINTED SCRIPT FOR TRAMADOL GIVEN TO PT AND OTHER SCRIPTS SENT TO THE PHARMACY. PT DENIED QUESTIONS. THIS NURSE ASSISTED PT TO CAR AND TRANSFERRED BAGS INTO CAR.
== END 2020-06-15 16:30 | disposition home or self-care (01) | DRG 280 ==
LOC: COL.ER 10:34 → SURG 13:12
PROVIDERS: Emergency Medicine; Family Medicine; Hospitalist; Physician Assistant; Student in an Organized Health Care Education/Training Program; ADMIT Internal Medicine
PROC: 02HV33Z Insertion of Infusion Device into Superior Vena Cava, Percutaneous Approach (ICD-10-PCS; 2020-06-11)
PROC: 06H03DZ Insertion of Intraluminal Device into Inferior Vena Cava, Percutaneous Approach (ICD-10-PCS; principal; 2020-06-12)
DX: I82.412 Acute embolism and thrombosis of left femoral vein (principal); I26.99 Other pulmonary embolism without acute cor pulmonale; I21.A1 Myocardial infarction type 2; R04.2 Hemoptysis; J90 Pleural effusion, not elsewhere classified; Z68.42 Body mass index [BMI] 45.0-49.9, adult; D50.9 Iron deficiency anemia, unspecified; D25.9 Leiomyoma of uterus, unspecified; F32.9 Major depressive disorder, single episode, unspecified; M19.90 Unspecified osteoarthritis, unspecified site; F41.9 Anxiety disorder, unspecified; E66.01 Morbid (severe) obesity due to excess calories; D50.0 Iron deficiency anemia secondary to blood loss (chronic); G47.00 Insomnia, unspecified; Z88.2 Allergy status to sulfonamides; Z98.84 Bariatric surgery status; Z87.891 Personal history of nicotine dependence
CPT/HCPCS: 99223-AI; 99232-AI; 99233-AI; 99239; C1751; C1880; C1894; J1644; J2060; J2250; J2405; J2916; J3010; J7030; P9016; Q9967

== ENCOUNTER → 2020-10-04 | Outpatient (CLI) | payer OTHER, MEDICAID ==
[~2020-10-04] MED LIST changes: +ELIQUIS 5MG PO; +MEGACE ORAL40 MG/ML PO; +PROTONIX 40MG T40 MG PO; +SLOW FE142 MG PO; +ULTRAM 50MG TAB50 MG PO
== END ==
LOC: COL.RAD 14:00 → COL.VAS 14:45
DX: Z86.711 Personal history of pulmonary embolism (principal)
CPT/HCPCS: Q9967

== ENCOUNTER → 2020-12-25 | Outpatient (CLI) | payer OTHER, MEDICAID | LOC: COL.RAD 08:30 | DX: R91.1 Solitary pulmonary nodule (principal); I26.99 Other pulmonary embolism without acute cor pulmonale | CPT/HCPCS: Q9967 ==

== ENCOUNTER 2021-02-19 09:29 | Emergency (ER) | payer OTHER, MEDICAID ==
[~2021-02-19] VITALS: Ht 172.7 cm; Wt 134.5 kg
[2021-02-19 09:35] VITALS: TEMP 98.2
[2021-02-19 11:40] VITALS: BP 136/70; PULSE 63
== END 2021-02-19 11:40 | disposition home or self-care (01) ==
LOC: COL.ER 09:29
DX: M79.605 Pain in left leg (principal); M79.604 Pain in right leg; E66.01 Morbid (severe) obesity due to excess calories; Z86.718 Personal history of other venous thrombosis and embolism; Z79.01 Long term (current) use of anticoagulants

== ENCOUNTER 2021-08-26 13:48 | Emergency (ER) | payer OTHER, MEDICAID ==
[~2021-08-26] VITALS: Ht 170.2 cm; Wt 145.5 kg
[2021-08-26 14:11] VITALS: BP 168/96; TEMP 97.6
[2021-08-26] MEDS ORDERED: ELIQUIS 5MG PO (14:16)
[2021-08-26 15:15] VITALS: PULSE 54
== END 2021-08-26 15:15 | disposition home or self-care (01) ==
LOC: COL.ER 13:48
DX: S61.012A Laceration without foreign body of left thumb without damage to nail, initial encounter (principal); Z86.711 Personal history of pulmonary embolism; Z79.01 Long term (current) use of anticoagulants; W26.0XXA Contact with knife, initial encounter

== ENCOUNTER → 2022-03-12 | Outpatient (CLI) | payer OTHER, MEDICAID | LOC: COL.LAB 14:05 | DX: R53.83 Other fatigue (principal); R07.81 Pleurodynia ==

== ENCOUNTER 2024-02-18 11:48 | Emergency (ER) | payer OTHER ==
[~2024-02-18] VITALS: Ht 175.3 cm; Wt 148.6 kg
[2024-02-18 11:52] VITALS: TEMP 98.9
[2024-02-18] MEDS ORDERED: Morphine 4 MG/ML VIAL IV ONE (13:30)
[2024-02-18] MEDS ORDERED: Ondansetron 4 MG/2 ML VIAL IV ONE (13:30)
[2024-02-18] MEDS ORDERED: NS 1,000 ML IV ONE (13:30)
[2024-02-18 13:47] LABS: BASO % 0.7 % (0.0-2.0); EOS # 0.1 K/mm3 (0.0-0.7); EOS % 2.8 % (0.0-4.0); GRAN # 2.2 K/mm3 (1.4-6.5); GRAN % 47.3 % (42.2-75.2); HEMATOCRIT 39.9 % (37.0-47.0); HEMOGLOBIN 13.1 g/dl (12.5-16.0); LYMPH # 1.8 K/mm3 (1.2-3.4); LYMPH % 38.3 % (20.0-51.0); MEAN CELL VOLUME 86 fl (80.0-100.0); MEAN CORPUSCULAR HEMOGLOBIN 28 pg (27-31); MEAN CORPUSCULAR HGB CONC 33 g/dl (33.0-37.0); MEAN PLATELET VOLUME 11.1 fl (7.4-10.4); MONO # 0.5 K/mm3 (0.1-0.6); MONO % 10.7 % (1.7-9.3); PLATELET COUNT 211 K/mm3 (130-400); RED BLOOD COUNT 4.64 M/mm3 (4.10-5.30); REDCELL DISTRIBUTION WIDTH-CV 14.2 % (11.5-14.5)
[2024-02-18 13:50] LABS: URINE APPEARANCE CLOUDY (CLEAR/HAZY); URINE BLOOD NEGATIVE (NEGATIVE); URINE COLOR YELLOW (YELLOW); URINE GLUCOSE NEGATIVE (NEGATIVE); URINE KETONE NEGATIVE (NEGATIVE); URINE NITRATE NEGATIVE (NEGATIVE); URINE PROTEIN(semi-quant) NEGATIVE (NEGATIVE); URINE UROBILINOGEN 0.2 E.U/dL (0.2-1.0)
[2024-02-18 14:05] LABS: COLLECTION METHOD CLEAN CATCH
[2024-02-18 14:05] LABS: ALBUMIN 3.9 g/dL (3.5-5.0); BILIRUBIN,TOTAL 0.4 mg/dL (0.2-1.2); CALCIUM 9.5 mg/dL (8.4-10.2); CREATININE, serum 0.76 mg/dL (0.57-1.11); POTASSIUM 3.7 mEq/L (3.5-4.5); TOTAL PROTEIN 7.9 g/dl (6.2-8.1)
[2024-02-18] MEDS ORDERED: Iohexol 300 - 100 ML VIAL IV ONE (14:28)
[2024-02-18] MEDS ORDERED: NS 100 ML IV SCH (14:29)
[2024-02-18] MEDS ORDERED: PERCOCET 325 MG1 TA2 PO (15:12)
[2024-02-18] MEDS ORDERED: FLEXERIL 1010 MG/TAB PO (15:12)
[2024-02-18 15:25] VITALS: BP 142/63; PULSE 48
== END 2024-02-18 15:25 | disposition home or self-care (01) ==
LOC: COL.ER 11:48
PROVIDERS: Personal Emergency Response Attendant
DX: M54.9 Dorsalgia, unspecified (principal); Z87.442 Personal history of urinary calculi
CPT/HCPCS: J2270; J2405; J7030; Q9967